=== PATIENT | male | born 1995 | race Caucasian/White ===

== ENCOUNTER 2017-01-29 20:10 | Emergency (ER) | payer OTHER ==
[2017-01-29 20:35] VITALS: BP 129/68; PULSE 72; TEMP 98.5; BMI 19.9
--- NOTE | 2017-01-29 20:45 | PDOC ---
History of Present Illness - General History Source: Patient Exam Limitations: No Limitations - History of Present Illness Initial Comments: 01/29/17 20:45 The patient is a 21 year old male with no significant past medical history who presents to the Emergency Department with a finger laceration. The patient works in at [employer] and was polishing a wine glass when the glass broke and cut his left middle finger. He does not endorse and radiation of his pain. He did not try to treat his pain before presenting to the Emergency Department. Patient did not report any alleviating or exacerbating factors. <Enoch Braxton - Last Filed: 01/29/17 21:24> - General History Source: Patient Exam Limitations: No Limitations <Praveen Chacko - Last Filed: 01/29/17 21:44> - General Chief Complaint: Injury Stated Complaint: LEFT MIDDLE FINGER LACERATION Time Seen by Provider: 01/29/17 20:23 Past History <Enoch Braxton - Last Filed: 01/29/17 21:24> - Psycho/Social/Smoking Cessation Hx Anxiety: No Suicidal Ideation: No Smoking History: Never smoked Hx Alcohol Use: No Drug/Substance Use Hx: No Substance Use Type: None <Praveen Chacko - Last Filed: 01/29/17 21:44> - Past Medical History Allergies/Adverse Reactions: Allergies Allergy/AdvReac Type Severity Reaction Status Date / Time No Known Allergies Allergy Verified 01/29/17 20:21 Home Medications: Ambulatory Orders NK [No Known Home Medication] 01/29/17 Review of Systems - Review of Systems Able to Perform ROS?: Yes Comments:: 01/29/17 20:45 GENERAL/CONSTITUTIONAL: No fever or chills. No weakness. HEAD, EYES, EARS, NOSE AND THROAT: No change in vision. No ear pain or discharge. No sore throat. CARDIOVASCULAR: No chest pain or shortness of breath. RESPIRATORY: No cough, wheezing, or hemoptysis. GASTROINTESTINAL: No nausea, vomiting, diarrhea or constipation. GENITOURINARY: No dysuria, frequency, or change in urination. MUSCULOSKELETAL: No joint or muscle swelling or pain. No neck or back pain. SKIN: No rash NEUROLOGIC: No headache, vertigo, loss of consciousness, or change in strength/ sensation. ENDOCRINE: No increased thirst. No abnormal weight change. HEMATOLOGIC/LYMPHATIC: No anemia, easy bleeding, or history of blood clots. ALLERGIC/IMMUNOLOGIC: No hives or skin allergy. <Enoch Braxton - Last Filed: 01/29/17 21:24> *Physical Exam - Vital Signs Last Vital Signs Temp Pulse Resp BP Pulse Ox 98.5 F 72 15 129/68 99 01/29/17 20:18 01/29/17 20:18 01/29/17 20:18 01/29/17 20:18 01/29/17 20:18 - Physical Exam Comments: 01/29/17 20:45 GENERAL: Awake, alert, and fully oriented, in no acute distress HEAD: No signs of trauma EYES: PERRLA, EOMI, sclera anicteric, conjunctiva clear ENT: Auricles normal inspection, hearing grossly normal, nares patent, oropharynx clear without exudates. Moist mucosa NECK: Normal ROM, supple, no lymphadenopathy, JVD, or masses EXTREMITIES: (+) Third left digit 2.5 cm laceration with stellate flap on volar surface overlying middle phalanx. 2+ radial pulses with <2 second capillary refill. Normal range of motion, no edema. No clubbing or cyanosis. No cords. NEUROLOGICAL: Cranial nerves II through XII grossly intact. Normal speech, normal gait SKIN: Warm, Dry, normal turgor, no rashes or lesions noted. <Enoch Braxton - Last Filed: 01/29/17 21:24> - Vital Signs Last Vital Signs Temp Pulse Resp BP Pulse Ox 98.5 F 72 15 129/68 99 01/29/17 20:18 01/29/17 20:18 01/29/17 20:18 01/29/17 20:18 01/29/17 20:18 <Praveen Chacko - Last Filed: 01/29/17 21:44> Procedures - Laceration/Wound Repair Left 3rd digit Wound Length: to 2.5 cm Wound Explored: clean Wound's Depth, Shape: irregular, flap, stellate Irrigated w/ Saline: Yes Anesthesia: 1% Lidocaine Amount of Anesthetic (ccs): 2 Wound Debrided: minimal Wound Repaired With: Sutures, Steri-strips Suture Size/Type: 5:0 Number of Sutures: 7 Layer Closure: No Progress: 01/29/17 21:39 The wound was irrigated with 500 mL of normal saline. The wound was also soaked in Betadine with normal saline. The patient's wound was irregular with a flap and stolid. 7 vital interested sutures placed. However, at the distal avulsion, the skin is too thin to suture. Steri-Strips were placed. I advised the patient that this portion may fall off. Patient verbalizes understanding. <Praveen Chacko - Last Filed: 01/29/17 21:44> Medical Decision Making - Medical Decision Making 01/29/17 21:40 A portion of this note was documented by scribe services under my direction. I have reviewed the details of the note, within reason, and agree with the documentation with the following case summary and management plan written by me. Patient treated in the ED. Nursing notes are reviewed and incorporated into the medical decision-making. Vital signs reviewed. Peripheral IV access obtained by the nurse, laboratory studies are drawn and sent, reviewed and interpreted by myself. Vital Signs Temp Pulse Resp BP Pulse Ox 98.5 F 72 15 129/68 99 01/29/17 20:18 01/29/17 20:18 01/29/17 20:18 01/29/17 20:18 01/29/17 20:18 21-year-old male with no past medical history, [id number], presents with a laceration to the third digit of his left hand overlying his middle phalanx. This is on the volar side. Patient reports that his vaccinations are up -to-date. States that he was working at the [employer] when a wine glass split in half and cut his hand. Did not shatter. Please see procedure note for laceration repair. Scar and wound precautions were given. I advised the patient to return to the ER in 7-10 days for suture removal. Patient verbalizes understanding agrees with plan. I discussed the physical exam findings, ancillary test results and final diagnoses with the patient. I answered all of the patient's questions. The patient was satisfied with the care received and felt comfortable with the discharge plan and treatment plan. The patient will call their primary care physician within 24 hours to arrange follow-up and will return to the Emergency Department with any new, persistant or worsening symptoms. <Praveen Chacko - Last Filed: 01/29/17 21:44> *DC/Admit/Observation/Transfer - Attestations Scribe Attestion: 01/29/17 20:46 Documentation prepared by Enoch Braxton, acting as medical housekeeper for Praveen Chacko MD. <Enoch Braxton - Last Filed: 01/29/17 21:24> - Discharge Dispostion Admit: No <Praveen Chacko - Last Filed: 01/29/17 21:44> Diagnosis at time of Disposition: Laceration - Discharge Dispostion Disposition: HOME Condition at time of disposition: Good - Patient Instructions Printed Discharge Instructions: How to Care for a Laceration After Repair, DI for Laceration Repair Steri-Strips, DI for Laceration Repair -- Complex Suture Additional Instructions: You have 7 sutures placed. Please return to the ER in 7 to 10 days for suture removal. You may allow warm, soapy water to run down your hand. Take 600 mg ibuprofen every 6 hours as needed for pain.
== END 2017-01-29 21:49 | disposition home or self-care (01) ==
LOC: FER 20:10
CPT/HCPCS: 99282-25

== ENCOUNTER 2017-02-08 18:14 | Emergency (ER) | payer OTHER ==
--- NOTE | 2017-02-08 18:33 | PDOC ---
History of Present Illness - General Chief Complaint: Suture/Staple Removal(Here) Stated Complaint: SUTURE REMOVAL Time Seen by Provider: 02/08/17 18:20 - History of Present Illness Initial Comments: 02/08/17 18:27 Patient is a 21 year old male who presents for suture removal. He reports sustaining a laceration to his finger 15 days ago while at work. He lacerated his finger on a shard of glass. Since having his laceration sutured, he has been keeping it covered with bandaids during the day and uncovered at night as well as applying antibiotic ointment daily. He denies any erythema or pus drainage at the site and denies any fevers or chills. Past History - Past Medical History Allergies/Adverse Reactions: Allergies Allergy/AdvReac Type Severity Reaction Status Date / Time No Known Allergies Allergy Verified 02/08/17 18:15 Home Medications: Ambulatory Orders NK [No Known Home Medication] 01/29/17 Other medical history: DENIES - Psycho/Social/Smoking Cessation Hx Anxiety: No Suicidal Ideation: No Smoking History: Never smoked Hx Alcohol Use: No Drug/Substance Use Hx: No Substance Use Type: None Review of Systems - Review of Systems Constitutional: No: Chills, Fever Respiratory: No: Cough, Shortness of Breath Cardiac (ROS): No: Chest Pain, Palpitations ABD/GI: No: Constipated, Diarrhea, Nausea, Vomiting : No: Dysuria Integumentary: No: Erythema, Rash Neurological: No: Headache, Numbness, Tingling, Weakness *Physical Exam - Vital Signs Last Vital Signs Temp Pulse Resp BP Pulse Ox 98.2 F 58 L 16 111/64 100 02/08/17 18:15 02/08/17 18:15 02/08/17 18:15 02/08/17 18:15 02/08/17 18:15 - Physical Exam Comments: 02/08/17 19:04 General Appearance: Nourished. No Apparent Distress Respiratory/Chest: Lungs Clear, Normal Breath Sounds. No Crackles, Rales, Rhonchi, Wheezing Cardiovascular: Regular Rhythm, Regular Rate. No Murmur, Gallop/S3, Gallop/S4 Gastrointestinal/Abdominal: Normal Bowel Sounds, Soft. No Guarding, Rebound, Tenderness Extremity: Well healing laceration of the third digit of the left hand without erythema or drainage. Sensation to light touch and temperature intact distally. Normal capillary refill. Integumentary: Normal Color, Dry, Warm Neurologic: Fully Oriented, Alert, Normal Mood/Affect, Normal Response Medical Decision Making - Medical Decision Making 02/08/17 18:33 Patient is a 21 year old male who presents for suture removal. The patient has a well healing wound on the 3rd digit of his left hand without erythema or drainage. 7 sutures were removed successfully. Patient was instructed to continue using antibiotic ointment and bandaids as the wound continues to heal. Patient is agreeable with the plan. 02/08/17 18:41 *DC/Admit/Observation/Transfer Diagnosis at time of Disposition: Visit for suture removal - Discharge Dispostion Disposition: HOME Condition at time of disposition: Improved Admit: No - Patient Instructions Printed Discharge Instructions: DI for Suture Removal Additional Instructions: Please return to the ER if you experience concerning or worsening symptoms including fevers, chills, or drainage from the wound site. Continue to keep your wound clean and utilize antibiotic ointment. You may continue to use bandaids during the day to cover the wound and let it stay uncovered during the night. The wound will continue to heal over the next few weeks. Please follow up with your primary care provider to discuss your ER visit. - Attestations Physician Attestion: 02/08/17 18:37 I, Dr. Viral Rogers, attest that this document has been prepared under my direction and personally reviewed by me in its entirety. I further attest, that it accurately reflects all work, treatment, procedures and medical decision -making performed by me.
[2017-02-08 18:34] VITALS: BP 111/64; PULSE 58; TEMP 98.2; BMI 19.9
--- NOTE | 2017-02-08 18:43 | PDOC ---
Attending Attestation - Resident Resident Name: Viral Rogers - ED Attending Attestation I have performed the following: I have examined & evaluated the patient, The case was reviewed & discussed with the resident, I agree w/resident's findings & plan, Exceptions are as noted - HPI HPI: 02/08/17 18:42 sutures to laceration his left middle finger. cut on wine glass. sutureued 10 days ago. 01/29/17. no signs of infection - Physicial Exam PE: 02/08/17 18:43 hand sutures cdi. no erythema. tendons intact. sensation intact. - Medical Decision Making 02/08/17 18:43 dc sutures dc home;.
== END 2017-02-08 18:42 | disposition home or self-care (01) ==
LOC: FER 18:14
DX: Z48.02 Encounter for removal of sutures (principal)
CPT/HCPCS: 99282-25